=== PATIENT | female | born 1970 | race Caucasian/White ===

== ENCOUNTER 2018-04-24 19:49 | Emergency (ER) | payer BC ==
[~2018-04-24] VITALS: Ht 167.6 cm; Wt 78.9 kg
[~2018-04-24 19:49] MED LIST: ACETAMINOPHEN PO; CAFFEI PO; PREDNISONE PO; PROSUD NEB; VENTOLIN IH; XANAX XR0.5 MG PO
[2018-04-24 19:59] VITALS: BP 163/106; Ht 167.6 cm; Wt 78.9 kg
== END 2018-04-24 23:13 | disposition home or self-care (01) ==
LOC: ED 19:49
DX: H11.32 Conjunctival hemorrhage, left eye (principal); H53.9 Unspecified visual disturbance; R51 Headache; J45.909 Unspecified asthma, uncomplicated; I11.0 Hypertensive heart disease with heart failure; I50.9 Heart failure, unspecified; E11.9 Type 2 diabetes mellitus without complications; M81.0 Age-related osteoporosis without current pathological fracture; Z88.6 Allergy status to analgesic agent; Z88.1 Allergy status to other antibiotic agents; Z88.8 Allergy status to other drugs, medicaments and biological substances
CPT/HCPCS: J2270; Q0162

== ENCOUNTER 2018-11-07 10:15 | Inpatient (IN) | payer BC ==
[~2018-11-07] VITALS: Ht 154.9 cm; Wt 81.7 kg
--- NOTE | 2018-11-07 10:26 | NUR ---
EKG IN PROGRESS
--- NOTE | 2018-11-07 10:40 | NUR ---
PT BIB FAMILY C/C HEAD PRESSURE STS GENERALIZE WEAKNESS X 1 WK STS UNDER ALOT OF PROCEDURES AT THIS TIME STS HEART PALPITATIONS OFF AND ON PLACED ON MONITOR AWAITING FOR DR KIERRA KAISER
--- NOTE | 2018-11-07 11:19 | NUR ---
PLEASE ENTER FULL NAMES OF OBSTETRICS GYN/RN Patient data collected by (OBSTETRICS GYN):MANPREET Resendiz OBSTETRICS GYN Assessment reviewed and completed by (RN):GAYATRI Pichardo RN
--- NOTE | 2018-11-07 11:56 | NUR ---
PT AMBULATED TO BR WITH ASSIST BY SPOUSE, AND BACK TO BED URINE COLLECTED FOR HCG=NEG MORPHINE GIVEN PER ORDERS.
[2018-11-07 12:16] LABS: PLATELET COUNT 476 x10^3mcL (130-400); RED CELL DISTRIBUTION WIDTH 16.9 % (11.5-14.5)
[2018-11-07 12:20] LABS: CALCIUM 8.9 mg/dL (8.5-10.1); CARBON DIOXIDE 23.7 mmol/L (21-32); CHLORIDE SERUM 105 mmol/L (98-107); CREATININE SERUM 0.6 mg/dL (0.6-1.0); GFR1 > 60 mL/min; GLUCOSE SERUM 93 mg/dL (74-106); POTASSIUM SERUM 4.1 mmol/L (3.5-5.1); SODIUM SERUM 141 mmol/L (136-145)
[2018-11-07 12:30] LABS: ALBUMIN 3.5 g/dL (3.4-5.0); ALKALINE PHOSPHATASE 78 U/L (46-116); ALT/SGPT 26 U/L (14-59); AST/SGOT 27 U/L (15-37); BILIRUBIN TOTAL 0.6 mg/dL (0.20-1.00); TOTAL PROTEIN, SERUM 7.1 g/dL (6.4-8.2)
[2018-11-07 13:06] LABS: BAND NEUTROPHIL 1 % (0-10); BASOPHIL 0 % (0-2); MONOCYTE 4 % (0-7); SEGMENTED NEUTROPHILS 79 % (37-75)
[2018-11-07 13:07] LABS: rbc morphology (normal/abnorm) ABNORMAL (NORMAL)
[2018-11-07 13:10] LABS: PLATELET MORPHOLOGY PLATELETS INCREASED
--- NOTE | 2018-11-07 13:10 | NUR ---
US AT BEDSIDE
--- NOTE | 2018-11-07 13:59 | NUR ---
TAKEN TO RADIOLOGY FOR CT
[2018-11-07] MEDS ORDERED: MORPHINE SULFAT15 MG PO (15:15)
[2018-11-07] MEDS ORDERED: PREDNISONE20 MG PO (15:15)
[2018-11-07] MEDS ORDERED: AMITRIPTYLINE H10 MG PO (15:16)
[2018-11-07] MEDS ORDERED: XANAX0.5 MG PO (15:16)
[2018-11-07] MEDS ORDERED: ZESTRIL5 MG PO (15:17)
[2018-11-07] MEDS ORDERED: REGLAN10 M1 PO (15:17)
[2018-11-07] MEDS ORDERED: CARDIZEM60 MG PO (15:19)
[2018-11-07] MEDS ORDERED: LANTUS SOLOS100 U/M1 SQ (15:20)
--- NOTE | 2018-11-07 16:32 | NUR ---
PT ADMIT TO MS GAVE REPORT TO MANE
[2018-11-07 17:05] LABS: MAGNESIUM 2.3 mg/dL (1.8-2.4); PHOSPHOROUS 3.2 mg/dL (2.5-4.9)
[2018-11-07 17:06] LABS: T3 TOTAL 2.08 ng/mL
[2018-11-07 17:07] LABS: FREE T4 1.1 ng/dL (0.76-1.46); T4(THYROXINE) 9.5 ug/dL (4.7-13.3)
--- NOTE | 2018-11-07 17:10 | NUR ---
RECEIVED PT FROM ED VIA [employer], CAME IN DUE TO NECK AND BLE PAIN W/ REDNESS ON THE FACE. AAOX4. C/O 5/10 ACHING AND SHARP HEADACHE. DENIES DIZZINESS. ABLE TO FOLLOW COMMANDS. NO SOB NOTED, LUNG SOUNDS CTA. STATED THAT SHE HAS SOB ON AMBULATION, O2 SAT=96%, RA. DENIES CHEST PAIN/PRESSURE, SO=585. DENIES ABDOMINAL DISCOMFORT. C/O DRIBBLING WHEN URINATING AND PERIODS OF INCONTINENCE. W/ DECREASED SENSATION ON BLE. C/O 6/10 ACHING PAIN ON THE NECK AND BLE. LIMITED ROM BLE AND BILATERAL FEET, WALKER AT BEDSIDE. PULSES ARE PALPABLE. SIDE RAILS UPX2. CALL LIGHT ON REACH. PT'S AT BEDSIDE. PRIMARY NURSE MANE AT BEDSIDE FOR CONTINUITY OF CARE
[2018-11-07 17:11] LABS: CHOLESTEROL/HDL RATIO 6.3
[2018-11-07 17:31] VITALS: BP 157/94
[2018-11-07 17:40] VITALS: Ht 154.9 cm; Wt 81.7 kg
--- NOTE | 2018-11-07 17:43 | NUR ---
LACTIC ACID 5.3, DR. ALSTONED AWARE. NO FURTHER ORDERS AT THIS TIME. PHYSICIAN AT BEDSIDE TALKING TO PT. WILL CONTINUE TO MONITOR.
--- NOTE | 2018-11-07 18:05 | NUR ---
PT LAYING IN BED WITH HOB ELEVATED EATING DINNER. NO S/S OF ACUTE DISTRESS. REPORTS GENERALIZED BODY ACHES, INCLUDING SHARP HEADACHE WITH PAIN TO RIGHT EYE. DR. ALSTONED AWARE. PT GIVEN PO PAIN MED, SEE EMAR. REPORTS PAIN DECREASING, REPORTS TOLERABLE AT THIS TIME. NO N/V. NO FEVER. NO CHILLS. FACE FLUSH RED. NO ITCHINESS. NO SOB ON ROOM AIR. O2 SAT 96%. RR EVEN/UNLABORED. ANXIOUS AT TIMES. AA/OX4. IV WNL TO LW, PATENT AND FLUSHES WELL. SALINE LOCKED. BED IN LOW POSITION. CALL LIGHT WITHIN REACH. FAMILY AT BEDSIDE. INSTRUCTED TO USE CALL LIGHT TO CALL FOR ASSISTANCE PRN. VERBALIZED UNDERSTANDING. WILL ENDORSE TO ONCOMING SHIFT.
[2018-11-07 19:07] LABS: microscopic required? NO
[2018-11-07 19:16] LABS: urine erythrocyte NEGATIVE (NEGATIVE)
--- NOTE | 2018-11-07 19:25 | NUR ---
RECEIVED PT FROM PREVIOUS SHIFT NURSE. PT AOX4, DENIES ROBERTS/DIZZINESS. MED SURG PT, DENIES CP/PRESSURE. DENIES SOB/DIFFICULTY BREATHING, ON RA. L. HAND IV NOTED, INTACT AND PATENT. BED IN LOWEST POSITION. CALL LIGHT WITHIN REACH. WILL CONTINUE TO MONITOR.
[2018-11-07 19:29] VITALS: BP 150/88
[2018-11-07 19:51] LABS: AMPHETAMINE QUAL UR NONE DETECTED (See below)
--- NOTE | 2018-11-08 01:00 | NUR ---
PT RESTING IN BED. RR EVEN AND UNLABORED. IN NO ACUTE DISTRESS. CALL LIGHT WITHIN REACH. BED IN LOWEST POSITION. WILL CONTINUE TO MONITOR.
--- NOTE | 2018-11-08 03:07 | NUR ---
PT C/O NAUSEA, MEDICATED PER EMAR.
[2018-11-08 05:35] VITALS: BP 139/81
[2018-11-08 07:01] LABS: BASOPHIL % 0.2 % (0-2)
[2018-11-08 07:09] LABS: CARBON DIOXIDE 21.4 mmol/L (21-32); CHLORIDE SERUM 106 mmol/L (98-107); CREATININE SERUM 0.6 mg/dL (0.6-1.0); GFR1 > 60 mL/min; GLUCOSE SERUM 107 mg/dL (74-106); SODIUM SERUM 141 mmol/L (136-145)
--- NOTE | 2018-11-08 07:13 | NUR ---
RECEIVED PT FROM SHIFT NURS ASLEEP BUT AROUSABLE. NO ACUTE DISTRESS NOTED. IV INTACT AND PATENT. BED IN LOW POSITION. CALL LIGHT WITHIN REACH. WILL CONTINUE TO MONITOR.
[2018-11-08 07:26] LABS: PLATELET COUNT 447 x10^3mcL (130-400); RED CELL DISTRIBUTION WIDTH 16.7 % (11.5-14.5)
[2018-11-08 08:05] VITALS: BP 137/81
--- NOTE | 2018-11-08 09:25 | NUR ---
LACTIC ACID 2.3. PAGED DR. ONVA. AWAITING CALL BACK.
--- NOTE | 2018-11-08 10:14 | NUR ---
PT ASLEEP BUT AROUSABLE. NO ACUTE DISTRESS NOTED. CALL LIGHT WITHIN REACH. WILL CONTINUE TO MONITOR.
--- NOTE | 2018-11-08 10:54 | NUR ---
PT C/O OF NECK PAIN 01/11. GAVE NORCO ORDERED. WILL CONTINUE TO MONITOR.
--- NOTE | 2018-11-08 11:47 | NUR ---
PT ASLEEP BUT AROUSABLE. WILL CONTINUE TO MONITOR.
--- NOTE | 2018-11-08 12:37 | NUR ---
PT C/O OF NECK PAIN 10/11. GAVE MORPHINE ORDERED. WILL CONTINUE TO MONITOR.
--- NOTE | 2018-11-08 13:24 | NUR ---
PT ASLEEP BUT AROUSABLE. WILL CONTINUE TO MONITOR.
[2018-11-08 17:20] VITALS: BP 136/67
--- NOTE | 2018-11-08 17:33 | NUR ---
PT C/O OF NAUSEA. GAVE ZOFRAN ORDERED. WILL CONTINUE TO MONITOR.
--- NOTE | 2018-11-08 18:04 | NUR ---
PT ASLEEP BUT AROUSABLE. RESP EVEN AND UNLABORED ON RA. NO ACUTE DISTRESS NOTED. HEPLOCK PATENT. BED IN LOW POSITION. WILL BE ENDORSED.
--- NOTE | 2018-11-08 20:00 | NUR ---
PT LYING IN BED AAO X4 VERBAL, DENIES HEADACHE OR DIZZINESS, NO DISTRESS LUNGS CTA, PT SKIN WARM DRY, FACE IS FLUSHED, UNABLE TO FULLY ASSESSED THE PT, SHE WANTED TO BE LEFT ALONE, STATED "I DONT WANT TO BE BOTHER, I NEED TO SLEEP" INTRODUCED SELF AND TOLD PT TO CALL FOR THE NURSE FOR ANY UNUSUAL CHANGES OF CONDITION OR NEED SOME HELP, WILL CONT TO MONITOR.
[2018-11-08 20:44] VITALS: BP 149/99
--- NOTE | 2018-11-08 22:11 | NUR ---
PT REFUSED ALL MEDICATIONS DUE AND ACCUCHECK, EXPLAINED THE ADVANTAGES OF TAKING MEDICATION ORDERED, BUT PT STATED "IM OK BELEIVE ME, I DONT NEED THOSE, I JUST WANT TO REST, I HOPE YOU GUYS WON'T DISTURB ME, IT'S MY RIGHT TO REFUSE IF I DON'T WANT IT" RIGHTS RESPECTED, WILL CONT TO MONITOR.
--- NOTE | 2018-11-09 00:26 | NUR ---
PT REFUSED SOFT NECK BRACE OFFERED, WAS ASKING EARLIER, PLACED NECKBRACE AT BEDSIDE AND WILL OFFER AGAIN IN AM.
--- NOTE | 2018-11-09 05:50 | NUR ---
PT REFUSED ACCUCHECKED AND ALL MEDS DUE LAST NIGHT, STATED "IM FINE, I DONT NEED IT" PT ALSO REFUSED BLD MD ARTURO AWARE, SLEPT WELL DURING THE SHIFT PRIVACY PROVIDED PER REQUEST, NO C/O PAIN, LUNGS CTA, DENIES PAIN, NO DISTRESS WILL ENDORSE TO INCOMING SHIFT FOR F/U CARE.
[2018-11-09 06:07] VITALS: BP 107/71
--- NOTE | 2018-11-09 06:22 | NUR ---
OFFERED AGAIN TO PUT ON SOFT NECK COLLAR, PT REFUSED.
[2018-11-09 09:22] VITALS: BP 114/74
--- NOTE | 2018-11-09 09:38 | NUR ---
AAO TIMES 4. MED SURG PATIENT. LUNGS CTA. NO SOB. O2 SAT ON RA 98%. BS'S ACTIVE TIMES 4. ABDOMEN SOFT AND ROUND. BURKS STRONG. IV SITE CDI. REFUSED AM MEDICATIONS EXCEPT ZESTRIL AND PREDNISONE. PERIPHERAL PULSES PALPABLE. NO EDEMA. PLEASANT.
--- NOTE | 2018-11-09 10:27 | NUR ---
SHE REFUSED LABS, SHIV FROM LAB NOTIFIED ME. I WILL NOTIFY DR NOVA.
[2018-11-09 10:35] VITALS: BP 114/74
[2018-11-09] MEDS ORDERED: ROBAXIN-750750 MG PO (12:04)
--- NOTE | 2018-11-09 13:54 | NUR ---
DC'D SL ANGIO INTACT. GAVE DISCHARGE INSTRUCTIONS AND PRESCRIPTION. PT VERBALIZED "I UNDERSTAND" TO ALL INSTRUCTIONS.
== END 2018-11-09 14:55 | disposition home or self-care (01) | DRG 556 ==
LOC: ED 10:15 → MU 15:27
PROVIDERS: Emergency Medicine; ADMIT Internal Medicine
DX: M62.838 Other muscle spasm (principal); E87.2 Acidosis; E24.9 Cushing's syndrome, unspecified; J45.909 Unspecified asthma, uncomplicated; I11.0 Hypertensive heart disease with heart failure; E11.65 Type 2 diabetes mellitus with hyperglycemia; M19.90 Unspecified osteoarthritis, unspecified site; M79.7 Fibromyalgia; M40.292 Other kyphosis, cervical region; D72.829 Elevated white blood cell count, unspecified; I50.9 Heart failure, unspecified; M81.0 Age-related osteoporosis without current pathological fracture; Z88.6 Allergy status to analgesic agent; Z88.1 Allergy status to other antibiotic agents; Z88.8 Allergy status to other drugs, medicaments and biological substances; Z79.4 Long term (current) use of insulin; Z79.899 Other long term (current) drug therapy
CPT/HCPCS: 82962; 84439; G0378; J0696; J2270; J2405; J3535; J7050; J7512; Q0092

== ENCOUNTER 2020-03-31 15:07 | Inpatient (IN) | payer OTHER, SELFPAY ==
[~2020-03-31] VITALS: Ht 154.9 cm; Wt 84.4 kg
[~2020-03-31 15:07] MED LIST changes: +AMITRIPTYLINE H10 MG PO; +CARDIZEM60 MG PO; +LANTUS SOLOS100 U/M1 SQ; +MORPHINE SULFAT15 MG PO; +PREDNISONE20 MG PO; +REGLAN10 M1 PO; +ROBAXIN-750750 MG PO; +XANAX0.5 MG PO; +ZESTRIL5 MG PO
[2020-03-31 15:12] VITALS: Ht 154.9 cm; Wt 84.4 kg
[2020-03-31] MEDS ORDERED: XANAX0.5 MG PO (21:13)
[2020-03-31] MEDS ORDERED: ZESTRIL5 MG PO (21:14)
[2020-03-31] MEDS ORDERED: PROINH INH (21:17)
[2020-03-31] MEDS ORDERED: PRE20 PO (21:18)
[2020-03-31] MEDS ORDERED: ATENOLOL25 MG PO (21:18)
[2020-03-31 22:47] LABS: CALCIUM 9.2 mg/dL (8.5-10.1); CARBON DIOXIDE 22.6 mmol/L (21-32); CHLORIDE SERUM 104 mmol/L (98-107); CREATININE SERUM 0.8 mg/dL (0.6-1.0); GFR1 > 60 mL/min; GLUCOSE SERUM 158 mg/dL (74-106); POTASSIUM SERUM 4.2 mmol/L (3.5-5.1); SODIUM SERUM 138 mmol/L (136-145)
[2020-03-31 22:52] LABS: ALBUMIN 3.9 g/dL (3.4-5.0); ALKALINE PHOSPHATASE 70 U/L (46-116); ALT/SGPT 31 U/L (14-59); AST/SGOT 14 U/L (15-37); BILIRUBIN TOTAL 0.68 mg/dL (0.20-1.00); TOTAL PROTEIN, SERUM 7.5 g/dL (6.4-8.2)
[2020-03-31 22:53] LABS: PLATELET COUNT 447 x10^3mcL (179-408); RED CELL DISTRIBUTION WIDTH 15.5 % (12.3-17.7)
[2020-04-01 00:07] LABS: BAND NEUTROPHIL 1 % (0-10); BASOPHIL 0 % (0-2); METAMYELOCTE 1 % (0-2); MONOCYTE 8 % (0-7); SEGMENTED NEUTROPHILS 78 % (37-75)
[2020-04-01 00:08] LABS: PLATELET MORPHOLOGY PLATELETS INCREASED; rbc morphology (normal/abnorm) NORMAL (NORMAL)
[2020-04-01 03:32] LABS: CHOLESTEROL/HDL RATIO 6.2
[2020-04-01 17:50] VITALS: BP 122/70
[2020-04-01 21:32] VITALS: BP 145/87
[2020-04-02 05:02] VITALS: BP 141/77
[2020-04-02 09:11] VITALS: BP 141/80
[2020-04-02 16:30] VITALS: BP 132/78
[2020-04-02 16:46] LABS: BASOPHIL % 0.2 % (0.2-1.3)
[2020-04-02 16:57] LABS: CALCIUM 8.9 mg/dL (8.5-10.1); CARBON DIOXIDE 25.1 mmol/L (21-32); CHLORIDE SERUM 103 mmol/L (98-107); CREATININE SERUM 0.7 mg/dL (0.6-1.0); GFR1 > 60 mL/min; GLUCOSE SERUM 156 mg/dL (74-106); POTASSIUM SERUM 4.1 mmol/L (3.5-5.1); SODIUM SERUM 139 mmol/L (136-145)
[2020-04-02 17:10] LABS: PLATELET COUNT 430 x10^3mcL (179-408); RED CELL DISTRIBUTION WIDTH 15.7 % (12.3-17.7)
[2020-04-02 21:13] VITALS: BP 130/68
[2020-04-02 22:04] VITALS: BP 131/72
[2020-04-03 05:53] VITALS: BP 118/63
[2020-04-03 09:08] VITALS: BP 120/76
[2020-04-03 13:44] VITALS: BP 122/72
[2020-04-03 17:12] VITALS: BP 113/77
[2020-04-03 20:22] VITALS: BP 114/62
[2020-04-04 05:45] VITALS: BP 122/69
[2020-04-04 08:34] VITALS: BP 123/71
[2020-04-04 12:06] VITALS: BP 100/46
[2020-04-04 12:26] LABS: BASOPHIL % 0.7 % (0.2-1.3)
[2020-04-04 12:40] LABS: CALCIUM 9.9 mg/dL (8.5-10.1); CARBON DIOXIDE 25.3 mmol/L (21-32); CHLORIDE SERUM 102 mmol/L (98-107); CREATININE SERUM 0.7 mg/dL (0.6-1.0); GFR1 > 60 mL/min; GLUCOSE SERUM 153 mg/dL (74-106); POTASSIUM SERUM 3.7 mmol/L (3.5-5.1); SODIUM SERUM 139 mmol/L (136-145)
[2020-04-04 13:36] LABS: PLATELET COUNT 418 x10^3mcL (179-408); RED CELL DISTRIBUTION WIDTH 15.7 % (12.3-17.7)
[2020-04-04 21:55] VITALS: BP 129/64
[2020-04-05 07:05] VITALS: BP 138/83
[2020-04-05 08:30] VITALS: BP 103/55
[2020-04-05 12:14] VITALS: BP 119/82
[2020-04-05 16:07] VITALS: BP 130/86
[2020-04-05 19:50] VITALS: BP 114/78
[2020-04-06 05:15] VITALS: BP 127/67
[2020-04-06 07:13] LABS: PLATELET COUNT 449 x10^3mcL (179-408); RED CELL DISTRIBUTION WIDTH 15.3 % (12.3-17.7)
[2020-04-06 07:51] LABS: CALCIUM 9.2 mg/dL (8.5-10.1); CARBON DIOXIDE 23.2 mmol/L (21-32); CHLORIDE SERUM 103 mmol/L (98-107); CREATININE SERUM 0.6 mg/dL (0.6-1.0); GFR1 > 60 mL/min; GLUCOSE SERUM 99 mg/dL (74-106); POTASSIUM SERUM 3.4 mmol/L (3.5-5.1); SODIUM SERUM 140 mmol/L (136-145)
[2020-04-06 09:13] VITALS: BP 110/78
[2020-04-06 12:23] VITALS: BP 118/89
[2020-04-06 12:47] LABS: ATYPICAL LYMPH 3 %; BAND NEUTROPHIL 4 % (0-10); METAMYELOCTE 1 % (0-2); MONOCYTE 8 % (0-7); MYELOCYTE 3 % (0-2); SEGMENTED NEUTROPHILS 50 % (37-75)
[2020-04-06 12:49] LABS: PLATELET MORPHOLOGY PLATELETS NORMAL; rbc morphology (normal/abnorm) NORMAL (NORMAL)
[2020-04-06 15:27] LABS: UA SPECIFIC GRAVITY 1.015 (1.005-1.035); microscopic required? YES; urine erythrocyte TRACE (NEGATIVE)
[2020-04-06 17:49] VITALS: BP 106/65
[2020-04-06 21:33] VITALS: BP 142/56
[2020-04-07 05:44] VITALS: BP 123/89
[2020-04-07 08:00] VITALS: BP 124/78
[2020-04-07 10:15] LABS: CALCIUM 8.9 mg/dL (8.5-10.1); CARBON DIOXIDE 24.6 mmol/L (21-32); CHLORIDE SERUM 103 mmol/L (98-107); CREATININE SERUM 0.6 mg/dL (0.6-1.0); GFR1 > 60 mL/min; GLUCOSE SERUM 106 mg/dL (74-106); POTASSIUM SERUM 3.5 mmol/L (3.5-5.1); SODIUM SERUM 140 mmol/L (136-145)
[2020-04-07 10:36] LABS: BASOPHIL % 0.6 % (0.2-1.3)
[2020-04-07 10:47] LABS: RED CELL DISTRIBUTION WIDTH 15.1 % (12.3-17.7)
[2020-04-07 10:48] LABS: PLATELET COUNT 452 x10^3mcL (179-408)
[2020-04-07 11:58] VITALS: BP 109/71
[2020-04-07 16:58] VITALS: BP 112/67
[2020-04-07 21:25] VITALS: BP 102/66
[2020-04-08 05:22] VITALS: BP 122/77
[2020-04-08 09:03] VITALS: BP 110/74
[2020-04-08 16:18] VITALS: BP 110/67
[2020-04-08 20:39] VITALS: BP 107/69
[2020-04-09 05:04] VITALS: BP 120/77
[2020-04-09] MEDS ORDERED: AUG500 PO (08:30)
[2020-04-09] MEDS ORDERED: D-10001 TAB PO (08:33)
[2020-04-09] MEDS ORDERED: ROX5 PO (08:49)
[2020-04-09 09:24] VITALS: BP 135/68
[2020-04-09 11:14] VITALS: BP 135/68
[2020-04-09 12:29] VITALS: BP 116/64
== END 2020-04-09 15:03 | disposition home health service (06) | DRG 494 ==
LOC: ED 15:07 → MU 18:45
PROVIDERS: Internal Medicine; Specialist; ADMIT Internal Medicine; ATTEND Internal Medicine
PROC: 0QSH04Z Reposition Left Tibia with Internal Fixation Device, Open Approach (ICD-10-PCS; principal; 2020-04-02)
DX: S82.102A Unspecified fracture of upper end of left tibia, initial encounter for closed fracture (principal); Z88.6 Allergy status to analgesic agent; Z88.8 Allergy status to other drugs, medicaments and biological substances; F41.9 Anxiety disorder, unspecified; F32.9 Major depressive disorder, single episode, unspecified; Z20.822 Contact with and (suspected) exposure to COVID-19; I11.0 Hypertensive heart disease with heart failure; I20.9 Angina pectoris, unspecified; M81.0 Age-related osteoporosis without current pathological fracture; W18.39XA Other fall on same level, initial encounter; Y93.89 Activity, other specified; Y92.89 Other specified places as the place of occurrence of the external cause; Y99.8 Other external cause status; E11.9 Type 2 diabetes mellitus without complications; J45.909 Unspecified asthma, uncomplicated
CPT/HCPCS: 78226; 82962; 97110-GP; 97530-GP; A9537; G0378; J0131; J0690; J1170; J1644; J2175; J2250; J2270; J2405; J2704; J3010; J3370; J3490; J7030; J7040; J7512; U0003